=== PATIENT | female | born 1940 | race Caucasian/White ===

== ENCOUNTER 2018-04-10 08:26 | Observation (INO) ==
[~2018-04-10 08:26] MED LIST: MORPHINE SULFATE 15 MG TABLET.SA PO PRN; RINGER'S SOLUTION,LACTATED 1,000 ML IV PRN; TRANEXAMIC ACID 1,000 MG in NORMAL SALINE 100 ML IV PRN; ceFAZolin SODIUM 1 GM VIAL IV PRN
[2018-04-10] MEDS ORDERED: ROPIVACAINE HCL/PF 100 MG, EPINEPHrine 0.2 MG, KETOROLAC TROMETHAMINE 30 MG in NORMAL S... IJ PRN (09:00)
--- NOTE | 2018-04-10 10:20 | ANES ---
Anesthesia Pre Procedure Eval Vitals/Labs: Last Vital Signs Temp 36.4 C 04/10/18 08:44 Pulse 61 04/10/18 08:44 Resp 18 04/10/18 08:44 BP 167/69 H 04/10/18 08:44 Pulse Ox 97 04/10/18 08:44 HOME MEDICATIONS Lisinopril [Zestril] 5 mg PO DAILY 01/17/13 [Last Taken 04/10/18] Lovastatin 60 mg PO HS 09/09/15 [Last Taken 04/09/18 19:00] traMADol HCL [Tramadol HCl] 1 tab PO TID PRN 04/10/18 [Last Taken 04/09/18] Allergies/Adverse Reactions: Allergies Allergy/AdvReac Type Severity Reaction Status Date / Time No Known Allergies Allergy Verified 04/10/18 08:58 - Planned Procedure Planned Procedure: Right Total Knee Arthroplasty Medication List Reviewed:: Yes Allergies Verified: Yes Medical History (Last Reviewed 04/10/18 @ 08:58 by Filomena Gutierrez) Breast cancer History of uterine cancer Allergic rhinitis Onset Date: Unknown Hyperlipidemia Onset Date: Unknown Hypertension Onset Date: Unknown Acute sinusitis Onset Date: 05/2012 Cough Onset Date: 09/2014 Impetigo Onset Date: 05/2012 Medial meniscus tear Onset Date: 12/2012 Surgical History (Last Reviewed 04/10/18 @ 10:19 by Eduin Persaud CRNA) laparotomy for tubal History of breast biopsy Onset Date: Unknown History of colonoscopy Onset Date: Unknown History of hysterectomy Onset Date: 2003 History of modified radical mastectomy Onset Date: Unknown History of oophorectomy Onset Date: Unknown Hx of total knee arthroplasty Onset Date: 09/2015 S/P left knee arthroscopy Onset Date: 12/2012 Family History (Last Reviewed 04/10/18 @ 10:19 by Eduin Persaud CRNA) Mother COPD (chronic obstructive pulmonary disease) Father Accident - Family Anesthesia History Family History:: no untoward family reactions to anesthesia - Airway/Neck/Teeth Denture Type: Full- Upper & Lower Neck Exam: full range of motion, normal inspection Mallampatti Score: 2 Thyromental (T-M) distance: > 6 cm Mandibulo Hyoid distance: > 3 cm - Respiratory Respiratory: lungs clear, normal breath sounds Smoking Status: Former smoker Sleep Apnea currently treated: No Sleep Apnea by current assessment: No - Cardiovascular Patient History - Cardiac/Respiratory: Hypertension, Hyperlipidemia Tolerates Activity: Fair Heart Sounds: S1 & S2, Regular - Anesthesia Assessment and Plan ASA Class: PS, II Anesthesia Type Plan: Spinal - rt adductor canal block for postop analgesia Planned difficult intubation/equipment available: No
[2018-04-10] MEDS ORDERED: MAGNESIUM HYDROXIDE 30 ML UDC PO PRN (12:19)
[2018-04-10] MEDS ORDERED: ZOLPIDEM TARTRATE 5 MG TABLET PO PRN (12:19)
[2018-04-10] MEDS ORDERED: MAG HYDROX/ALUMINUM HYD/SIMETH 30 ML UDC PO PRN (12:19)
[2018-04-10] MEDS ORDERED: ACETAMINOPHEN 500 MG TABLET PO PRN (12:19)
[2018-04-10] MEDS ORDERED: MORPHINE SULFATE 2 MG/ML DISP.SYRIN IV PRN (12:19)
[2018-04-10] MEDS ORDERED: diphenhydrAMINE HCL 50 MG/ML VIAL IV PRN (12:19)
--- NOTE | 2018-04-10 12:19 | OR ---
Operative Report - Dictated Report Narrative: Date: 04/10/2018 Preoperative diagnosis: Right Knee degenerative joint disease. Postoperative diagnosis: Right Knee degenerative joint disease. Procedure: Right Total knee arthroplasty. Surgeon: Espinoza Dumont M.D. Chronometer Tester: Irving Guerrier PA-C Anesthesia: Spinal with regional block and local periarticular joint injection. Complications: None Specimens: Bone for disposal. Estimated blood loss: Minimal. Tourniquet time: 78 Minutes at 350 millimeters of mercury. Retained implants: Depuy Attune size 6 narrow right lugged cemented posterior stabilized femoral component. Size 5 fixed-bearing cemented tibial platform. 6 by 7 millimeter posterior stabilized cross-linked tibial insert. 41 millimeter medialized patella button. Indications: Mrs. Zamorano is a 77-year-old female who has had long-standing right knee pain and arthrosis. This patient was followed in my clinic for period of time with significant complaints of right knee pain consistent with arthritic changes. She had failed conservative measures including, but not limited to, activity modification, passage of time, medications, and other conservative measures. Patient wished to proceed with surgical treatment. The risks, benefits, and alternatives were discussed in clinic. The risks of , blood clots, bleeding, infection, nerve/tendon blood vessel/ injury, malposition of components, intraoperative fracture, postoperative limited range of motion, persistent pain, failure of components, and need for additional procedures. Patient wished to proceed consent was obtained after answering all questions. Procedure: After marking the correct extremity on the floor, the patient was taken to the operating room. A timeout was performed. IV antibiotics consisting of Ancef were administered prior to the procedure. A regional followed by spinal anesthetic was induced by anesthesia, per my request, on the operative table with all bony prominences well-padded. Ortiz catheter was placed, and a bump was placed under the operative side buttock. SCDs and WILNER hose were utilized on the nonoperative leg. A well-padded tourniquet was applied to the operative thigh. The operative leg was then pre-scrubbed with alcohol prepped, and draped in a standard sterile fashion. After exsanguinating the extremity with an Esmarch bandage, the tourniquet was inflated. After marking out the anterior knee for standard incision centered over the patella, the skin was incised and dissected down to the joint retinaculum. The joint retinaculum was marked out as well as the horizontal axis of the patella, and a standard medial parapatellar arthrotomy was then made. The most proximal aspect of the quadriceps tendon and the patella tendon insertion were protected from release. A partial synovectomy was performed as well as a resection of the infrapatellar fat pad. The distal femoral fat pad proximal to the trochlea was also resected using cautery. The soft tissues were elevated off the medial aspect of the proximal tibia using a Morgan elevator ensuring that we did not transect the medial collateral ligament. Upon initial evaluation range of motion was approximately 0 degrees to 130 degrees of flexion. There were signs of advanced arthrosis in the medial, lateral, and patellofemoral joint spaces. There were large marginal osteophytes which were removed with a rongeur. The knee was hyperflexed and the patella was tucked laterally. Protecting the surrounding soft tissues with Homans, an entry drill was placed down the femoral canal using Whitesides line for guidance into the entry point. The intramedullary femoral alignment caterina was utilized in order to cut the distal femur in 5 degrees of valgus resecting 10 millimeters of bone. Next the distal femur was sized to a size 6. A posterior referencing guide was utilized to place the distal femoral cutting block in 3 degrees of external rotation. This was pinned into place. The rotation was confirmed both visually and based on anatomic landmarks. The 4 in 1 cutting jig of the appropriate size was utilized in order to make all bony cuts. The angle wing was used to ensure no notching. Retractors were utilized in order to protect surrounding soft tissues. This cut did not result in any excessive notching. We then cut the box centered over the distal femur. This allowed for resection of the anterior and posterior cruciate ligaments. I then turned my attention to the preparation of the tibia. Using an extra medullary tibial alignment caterina, 4 millimeters of bone was resected off the medial articular surface. This was made perpendicular to the mechanical axis of the joint with the alignment caterina centered over the ankle mortise. The alignment caterina was checked and was noted to be parallel to the mechanical axis, centered over the medial one third of the tibial tubercle, paralleling the anterior surface of the tibia. We then turned our attention to the remaining meniscus and soft tissues. These were removed while protecting the surrounding ligaments and soft tissues. The marginal osteophytes off the anterior, posterior, medial, lateral aspects of the femur and tibia were removed. The tibia was sized out to a size 5. Next the tibia was drilled and punched in an externally rotated position. Next the trial femur and a series of tibial inserts were utilized in order to allow for full extension and maximal flexion. It was found that a 7 millimeter insert gave the best range of motion and stability at multiple flexion points as well as at full extension there was less than 2 mm of gapping both medially and laterally. There is minimal anterior translation with the knee at 90 degrees of flexion and no signs of being able to dislocate the knee. The patella was then prepared. The initial thickness was 25 millimeters. This was reamed down to 15 millimeters parallel to the anterior surface of the patella. It was sized out to a size 41 medialized patella button. This was then drilled and trialed. Without any medial restraint the patella tracked appropriately and did not sublux or dislocate. At this point, it was felt these were the appropriate sized implants, and all trials were removed. The standard periarticular joint injection consisting of ropivacaine, Toradol, and epinephrine were injected into the periarticular joint tissues. The bony surfaces were thoroughly irrigated with a pulsatile- suction saline irrigation device. A bone plug from the prior resected anterior chamfer cut was placed into the drill hole at the distal femur. The bony surfaces were then dried in preparation for placement of the implants. The cement was vacuum mixed per the leak detection engineer's instructions. The cement was placed on the dry bony surfaces and posterior aspect of the implants. The implants were impacted into place, removing all extruded cement. At this point anesthesia administered tranexamic acid per protocol intravenously. The knee was placed in extension with axial loading with the trial insert while the cement cured. Once the cement cured, all remaining extruded cement was removed. The knee was placed through a range of motion with the trial insert to ensure appropriate range of motion and stability. Final range of motion was approximately 0 to 130 degrees. The knee was again thoroughly irrigated with pulsatile saline lavage. The final polyethylene insert was then impacted into place ensuring no retained soft tissues. The remaining periarticular joint injection was injected. A medium Hemovac drain was placed exiting superior laterally. The knee was then placed over a triangle and the arthrotomy was closed with interrupted #1 Vicryl after thoroughly irrigating the joint. The deep and subcutaneous tissues were closed with interrupted 0 and 3-0 Vicryl respectively. Skin was closed with a running subcutaneous 3-0 Monocryl and Prineo Dermabond dressing. 4 x 4's, Sof-Rol, and a full leg Adalberto wrap were applied. All sponge, needle, blade, and instrument counts were correct prior to closing the wounds. Postoperative condition: The patient was awoken and transferred to the postanesthesia care unit in stable condition. Plan is to be admitted to the inpatient medical/surgical floor postoperatively for 24 hours of IV antibiotics , physical therapy, occupational therapy, and medical comanagement. Patient will be weightbearing as tolerated with range of motion as tolerated. DVT prophylaxis will be with SCDs, WILNER hose, and pharmacological anticoagulation. Anticipated hospital stay is approximately 1-3 days.
--- NOTE | 2018-04-10 12:41 | ANES ---
Post Anesthesia Discharge - Transfer of Care Transfer of Care handoff given to nurse: Yes - Discharge from PACU Discharge from PACU when meets criteria: Yes
--- NOTE | 2018-04-10 13:12 | ANES ---
Post Anesthesia Assessment - Vital Signs Vitals: Last Vital Signs Temp 36.2 C 04/10/18 12:55 Pulse 65 04/10/18 12:55 Resp 16 04/10/18 12:55 BP 141/61 04/10/18 12:55 Pulse Ox 98 04/10/18 12:55 Airway Patency: Normal - Mental Status Level Of Consciousness: Awake - Pain Level Pain Score: 0 - N/V Assessment Nausea/Vomiting Presence: None Dehydration:: No
[2018-04-10] MEDS: KETOROLAC TROMETHAMINE 15 MG/ML VIAL IV SCH ×3 (13:28→23:47)
[2018-04-10] MEDS: DEXTROSE 5%-LACTATED RINGERS 1,000 ML IV PRN ×2 (13:52→21:19)
--- NOTE | 2018-04-10 15:07 | ANES ---
Anesthesia Procedure Note Procedure Note: ANESTHESIA PROCEDURE NOTE Date of procedure: 04/10/2018. Time of procedure:[]. 1030 Performed by: Jose Persaud CRNA Batter Out: [] Montserrat Roman RN . Preprocedure diagnosis: []. Right knee DJD. Desire for postoperative analgesia Post procedure diagnosis: Same. Procedure:[] Ultrasound-guided right adductor canal block Indications: []. Postoperative analgesia Findings: [] Patient brought to operating room #2 and placed in supine position. Patient was given IV sedation. Patient's right inner thigh was prepped with ChloraPrep. Ultrasound was utilized to identify adductor canal. 1 mL of 1% Xylocaine was injected into the subcutaneous tissue in the right thigh as an anesthetic for needle puncture. A 20-gauge 4 inch Stimuplex regional block needle was advanced under ultrasound guidance until tip of needle was located in the adductor canal. A total of 25 mL of 0.25% Marcaine with epinephrine 1-200,000 was injected with adequate spread of local anesthetic noted. Regional block needle was removed intact EBL: Minimal. Fluids: N/A. Specimen: N/A. Post procedure condition: The patient tolerated the procedure well. No complications were noted. Thank you for this consultation Jose Persaud CRNA
[2018-04-10] MEDS: ceFAZolin SODIUM 1 GM in DEXTROSE 5 % IN WATER 50 ML IV SCH ×4 (15:40→21:07)
[2018-04-10] MEDS: oxyCODONE HCL/ACETAMINOPHEN 1 TAB TABLET PO PRN (15:41)
[2018-04-10] MEDS ORDERED: ROSUVASTATIN CALCIUM 10 MG TABLET PO SCH (21:00)
[2018-04-10] MEDS ORDERED: SENNOSIDES/DOCUSATE SODIUM 1 TAB TABLET PO SCH (21:00)
[2018-04-10] MEDS: MORPHINE SULFATE 15 MG TABLET.SA PO SCH (21:18)
[2018-04-11] MEDS: ceFAZolin SODIUM 1 GM in DEXTROSE 5 % IN WATER 50 ML IV SCH ×2 (02:06)
[2018-04-11 05:54] LABS: Hematocrit 37.4 % (37.0-47.0); Hemoglobin 12.6 gm/dL (12.5-16.0); Mean Cell Volume 92.1 fl (78-100); Mean Corpuscular Hgb Conc 33.7 g/dl (32-36); Platelet Count 181 K/mm3 (150-450); Red Blood Count 4.06 M/mm3 (4.2-5.4); Red Cell Distribution Width 13.3 % (11.5-14.0); White Blood Count 9.5 K/mm3 (4.0-10.5)
[2018-04-11] MEDS ORDERED: RINGER'S SOLUTION,LACTATED 1,000 ML IV PRN (06:00)
[2018-04-11] MEDS ORDERED: TRANEXAMIC ACID 1,000 MG in NORMAL SALINE 100 ML IV PRN (06:00)
[2018-04-11 06:09] LABS: Anion Gap 8.2 mmol/L (6.8-13.8); BUN/Creatinine Ratio 12.5 (9.0-21.6); Calcium * 8.7 mg/dL (7.9-10.9); Carbon Dioxide 27.7 mmol/L (24-32.6); Estimated Creat Clear 53.6; Potassium 3.9 mmol/L (3.4-4.6)
[2018-04-11] MEDS: KETOROLAC TROMETHAMINE 15 MG/ML VIAL IV SCH ×2 (06:52→12:36)
[2018-04-11] MEDS: MORPHINE SULFATE 15 MG TABLET.SA PO SCH (08:17)
[2018-04-11] MEDS: oxyCODONE HCL/ACETAMINOPHEN 1 TAB TABLET PO PRN ×2 (08:18→12:37)
--- NOTE | 2018-04-11 08:25 | PN ---
Subjective - Date and Time Seen Date: 04/11/18 Time: 08:23 Subjective Narrative: Reports pain is being controlled. Reports some mild nauseous morning is getting ready to eat breakfast. No lightheadedness or dizziness. No complaints besides mild nausea. Objective Objective Narrative: Bandages clean dry intact. Drain is intact. Calf supple. Able to plantarflex and dorsiflex her right ankle. Dorsalis pulses intact. - Vitals Vitals: Last Vital Signs Temp 36.7 C 04/11/18 06:41 Pulse 57 L 04/11/18 08:18 Resp 18 04/11/18 06:41 BP 131/58 04/11/18 08:18 Pulse Ox 99 04/11/18 06:41 - Abnormal Lab Findings Abnormal Lab Findings: Abnormal Lab Results 04/11/18 04/11/18 Range/Units 05:45 05:45 RBC 4.06 L (4.2-5.4) M/mm3 Random Glucose 112 H (70-110) mg/dL - Exam Constitutional: Present: Alert, Oriented x3, Cooperative, No distress Cauti Physician Documentation - Urinary Catheter Management Urethral (Ortiz) Date of Insertion: 04/10/18 Time of Insertion: 10:44 Date of Removal: 04/11/18 Time of Removal: 07:00 Assessment/Plan - Problems/Diagnosis (1) Total knee replacement status Problem: Acute Narrative: PT, anticoagulation, pain control, pull drain today (2) Nausea Problem: Acute Narrative: Antinausea medicine, advised to watch if she feels is related to taking pain medication. If so we'll modify medications. (3) Hypertension Problem: Chronic (4) Hyperlipemia Problem: Chronic (5) Right knee DJD Problem: Chronic Qualifiers:
[2018-04-11] MEDS: ONDANSETRON HCL/PF 2 MG/ML VIAL IV PRN ×2 (08:27→15:10)
[2018-04-11] MEDS ORDERED: LISINOPRIL 5 MG TABLET PO SCH (09:00)
[2018-04-11] MEDS ORDERED: ENOXAPARIN SODIUM 40 MG/0.4 ML SYRG SC SCH (11:19)
--- NOTE | 2018-04-11 16:33 | DS ---
(1) Acute blood loss anemia Problem: Acute (2) Total knee replacement status Problem: Acute Qualifiers: Laterality: right Qualified Code(s): Z96.651 - Presence of right artificial knee joint (3) Hyperlipemia Problem: Chronic (4) Hypertension Problem: Chronic Description of Stay: Mrs. Zamorano was admitted to the floor after undergoing right total knee arthroplasty. Tolerated this well. Was admitted to the floor postoperatively for 24 hours of IV antibiotics, pain control, medical comanagement, and occupational and physical therapy. OT and PT were consulted to assist with activities of daily living and ambulation. Was made weightbearing as tolerated with range of motion as tolerated. Pain was initially controlled with IV regimen. This was transitioned to oral once tolerating a by mouth intake. Was resumed on home diet and medications. Had a Ortiz catheter inserted and the operating room which was discontinued on postoperative day 1. A drain was placed intraoperatively into the knee which was discontinued on postoperative day 1. Lovenox SCD and WILNER hose were utilized for DVT prophylaxis. Vital signs remained stable to the hospital course. Serial labs were obtained which showed a final hemoglobin of 12.6 grams. BMP was reviewed and was stable. Physical examination throughout the hospital course showed an extremity that had sensation that was intact to light touch, palpable pulses, a benign wound, motor intact to the toes, ankle, and knee. Knee range of motion was approximately 5 degrees to 70 degrees. Once an oral pain regimen was tolerated and physical therapy goals were met, it was felt that they were stable for discharge to home. Instructions: Continue with weightbearing as tolerated and range of motion as tolerated. It is okay to shower and get the wound wet as long as there is no drainage from the wound. Do not bathe or soak the wound. If there is any drainage from the wound keep the wound clean and dry and cover with dry gauze and tape. Change every 2-3 days as needed if there is any drainage. Cover wound while showering if there is any drainage. Continue with physical therapy. Resume home diet. Report any fever over 101.5 Fahrenheit, uncontrolled pain, increased drainage, foul odor of drainage, new or increased calf pain or shortness of breath, or any other significant complaints. A 325mg dialy aspirin will be started after finishing anticoagulation if not allergic. Continue with WILNER hose on the operative extremity until instructed otherwise. No driving until instructed otherwise. Follow up in approximately 10-14 days. Procedures Performed: see notes below List Procedures: Right total knee arthroplasty Results and Findings: Lab Pending Results 04/11/18 05:45: WBC 9.5, RBC 4.06 L, Hgb 12.6, Hct 37.4, MCV 92.1, MCH 31.0, MCHC 33.7, RDW 13.3, Plt Count 181, MPV 10.0 04/11/18 05:45: Sodium 138, Plasma Sodium 138, Potassium 3.9, Chloride 106, Carbon Dioxide 27.7, Anion Gap 8.2, BUN 11, Creatinine 0.88, Est GFR (Non-Af Amer) 67, BUN/Creatinine Ratio 12.5, Random Glucose 112 H, Calcium 8.7 Discharge Location: Home Disposition: Home self-care Condition: Good Discharge Activity: Activity as tolerated, Weight bearing Discharge Diet: General/regular food Referrals: Lawanda Ivy MD [Primary Care Provider] - Additional Patient Instructions (free text): Physical therapy at [facility] outpt Rehab on 04/13/18 at 9:15am. Follow up with Dr Dumont on TuesdayMay 02 at 10:45am Prescriptions (Any new or edited meds): Enoxaparin Sodium [Lovenox] 40 mg SC Q24H #7 disp.syrin Morphine Sulfate [Ms Contin] 15 mg PO Q12H #20 tablet.sa oxyCODONE HCL/ACETAMINOPHEN [Percocet 5 MG/325 MG] 2 tab PO Q4H PRN #60 tablet PRN Reason: Moderate Pain (Pain Scale 4-6) Promethazine HCl [Phenergan (Promethazine)] 25 mg PO Q6H PRN #30 tab PRN Reason: nausea/vomiting Complete Home Medications List: Complete Home Medication List: Lisinopril [Zestril] 5 mg PO DAILY 01/17/13 Lovastatin 60 mg PO HS 09/09/15 Enoxaparin Sodium [Lovenox] 40 mg SC Q24H #7 disp.syrin 04/11/18 Morphine Sulfate [Ms Contin] 15 mg PO Q12H #20 tablet.sa 04/11/18 Promethazine HCl [Phenergan (Promethazine)] 25 mg PO Q6H PRN #30 tab 04/11/18 Sennosides/Docusate Sodium [Senokot-S] 2 tab PO HS tablet 04/11/18 oxyCODONE HCL/ACETAMINOPHEN [Percocet 5 MG/325 MG] 2 tab PO Q4H PRN #60 tablet 04/11/18 Amb Orders for Discharge: PT Evaluation and Treatment* Facility: [facility], Location: Rehabilitation Services
[2018-04-11 17:14] VITALS: BP 135/62
== END 2018-04-11 17:30 | disposition home or self-care (01) ==
LOC: MS → EDSTATUS 10:15
PROVIDERS: ADMIT Orthopaedic Surgery; ATTEND Orthopaedic Surgery
DX: D62 Acute posthemorrhagic anemia; G89.18 Other acute postprocedural pain; M17.11 Unilateral primary osteoarthritis, right knee; I10 Essential (primary) hypertension; E78.5 Hyperlipidemia, unspecified; Z68.36 Body mass index [BMI] 36.0-36.9, adult
CPT/HCPCS: 36415; 73560; 80048; 85027; 96361; 96365; 96366; 96372; 96375; 96376; 97110; 97116; 97161; 97166; A4210; G0378; G8978; G8979; G8980; G8987; G8988; G8989; J2405